=== PATIENT | female | born 1965 | race Caucasian/White ===

== ENCOUNTER 2021-01-13 07:29 | Emergency (ER) | payer SELFPAY ==
[~2021-01-13] VITALS: Ht 167.6 cm; Wt 77.1 kg
[2021-01-13] MEDS ORDERED: HYDROCHLOROTHIA25 MG PO (08:52)
[2021-01-13] MEDS ORDERED: LISINOPRIL10 MG PO (08:52)
[2021-01-13] MEDS ORDERED: K-TAB ER20 MEQ PO (08:52)
== END 2021-01-13 08:53 | disposition home or self-care (01) ==
LOC: ED 07:29
DX: I10 Essential (primary) hypertension (principal); R60.0 Localized edema; Z87.891 Personal history of nicotine dependence
CPT/HCPCS: 80053; 83880; 85025; 85610; 85730; 99284

== ENCOUNTER 2022-06-19 12:45 | Emergency (ER) | payer OTHER ==
[~2022-06-19] VITALS: Ht 167.6 cm; Wt 77.1 kg
[~2022-06-19 12:45] MED LIST: HYDROCHLOROTHIA25 MG PO; K-TAB ER20 MEQ PO; LISINOPRIL10 MG PO
[2022-06-19] MEDS ORDERED: NAPROSYN500 MG PO (14:03)
[2022-06-19] MEDS ORDERED: GABAPENTIN300 MG PO (14:03)
== END 2022-06-19 14:12 | disposition home or self-care (01) ==
LOC: ED 12:45
DX: S80.12XA Contusion of left lower leg, initial encounter (principal); I10 Essential (primary) hypertension; Z87.891 Personal history of nicotine dependence; Z79.899 Other long term (current) drug therapy; W22.8XXA Striking against or struck by other objects, initial encounter
CPT/HCPCS: 73590; 99283-25

== ENCOUNTER 2022-10-29 04:27 | Emergency (ER) | payer OTHER ==
[~2022-10-29] VITALS: Ht 167.6 cm; Wt 70.3 kg
[~2022-10-29 04:27] MED LIST changes: +GABAPENTIN300 MG PO; +NAPROSYN500 MG PO
== END 2022-10-29 05:45 | disposition home or self-care (01) ==
LOC: ED 04:27
DX: S00.03XA Contusion of scalp, initial encounter (principal); I10 Essential (primary) hypertension; Z87.891 Personal history of nicotine dependence; Z79.899 Other long term (current) drug therapy; W01.0XXA Fall on same level from slipping, tripping and stumbling without subsequent striking against object, initial encounter
CPT/HCPCS: 70250; 72040; 99284-25